=== PATIENT | male | born 1955 | race Caucasian/White ===

== ENCOUNTER 2016-10-12 05:35 | Inpatient (IN) | payer OTHER, BC ==
[~2016-10-12] VITALS: Ht 177.8 cm; Wt 78.7 kg
[~2016-10-12 05:35] MED LIST: HYDROCODONE PO
[2016-10-12] MEDS ORDERED: LACTATED RINGERS 1,000 ML IV SCH (06:13)
[2016-10-12 06:14] VITALS: BP 140/91
[2016-10-12 06:17] VITALS: BP 140/91
[2016-10-12] MEDS ORDERED: LIDOCAINE 1%, 2ML SQ PRN (06:30)
[2016-10-12] MEDS ORDERED: THROMBIN 5,000 UNIT VIAL TP ONE (06:41)
[2016-10-12] MEDS ORDERED: EPINEPHRINE 1 MG/ML, 1ML ONE (06:41)
[2016-10-12] MEDS ORDERED: BUPIVACAINE/PF 0.25% ONE (06:41)
[2016-10-12] MEDS ORDERED: LIDOCAINE 0.5%-EPI 1:200K, 50ML ONE (06:41)
[2016-10-12] MEDS ORDERED: VANCOMYCIN 1,000 MG ONE (06:41)
[2016-10-12] MEDS ORDERED: ROCURONIUM 10 MG/ML ONE (07:36)
[2016-10-12] MEDS ORDERED: CEFAZOLIN 1,000 MG ONE (07:36)
[2016-10-12] MEDS ORDERED: ONDANSETRON 2MG/ML, 2ML ONE (07:36)
[2016-10-12] MEDS ORDERED: EPHEDRINE 50 MG/ML, 1ML ONE (07:36)
[2016-10-12] MEDS ORDERED: PROPOFOL 10 MG/ML, 50ML ONE (07:36)
[2016-10-12] MEDS ORDERED: GLYCOPYRROLATE 0.2MG/1ML ONE (07:36)
[2016-10-12] MEDS ORDERED: PHENYLEPHRINE 10 MG/ML ONE (07:36)
[2016-10-12] MEDS ORDERED: PROPOFOL 10 MG/ML, 20ML ONE (07:36)
[2016-10-12] MEDS ORDERED: SUCCINYLCHOLINE 20 MG/ML, 10ML ONE (07:36)
[2016-10-12] MEDS ORDERED: DEXAMETHASONE 4 MG/ML, 1ML ONE (07:36)
[2016-10-12] MEDS ORDERED: REMIFENTANIL 2 MG ONE (07:40)
[2016-10-12] MEDS ORDERED: MIDAZOLAM 1 MG/ML, 2ML ONE (07:40)
[2016-10-12] MEDS ORDERED: FENTANYL PF 100 MCG/2ML ONE (07:40)
[2016-10-12] MEDS ORDERED: HYDROmorphone 1 MG/ML, 1ML IV PRN (10:30)
[2016-10-12] MEDS ORDERED: ACETAMINOPHEN 325 MG TABLET PO PRN (10:30)
[2016-10-12] MEDS ORDERED: LORazepam 2 MG/ML, 1ML IVPush PRN (10:30)
[2016-10-12] MEDS ORDERED: FENTANYL PF 100 MCG/2ML IV PRN (10:30)
[2016-10-12] MEDS ORDERED: METOCLOPRAMIDE 5 MG/ML, 2ML IV PRN (10:30)
[2016-10-12] MEDS ORDERED: EPHEDRINE 50 MG/ML, 1ML IVPush PRN (10:30)
[2016-10-12] MEDS ORDERED: OXYcodone 5 MG/5 ML ORAL.SOL UDC PO PRN (10:30)
[2016-10-12] MEDS ORDERED: MEPERIDINE/PF 25MG/0.5ML IVPush PRN (10:30)
[2016-10-12] MEDS ORDERED: MIDAZOLAM 1 MG/ML, 2ML IV PRN (10:30)
[2016-10-12] MEDS ORDERED: ONDANSETRON 2MG/ML, 2ML IVPush PRN (10:30)
[2016-10-12] MEDS ORDERED: MEPERIDINE/PF 25MG/0.5ML ONE (11:24)
[2016-10-12] MEDS ORDERED: OXYcodone 5 MG/5 ML ORAL.SOL UDC ONE (12:22)
[2016-10-12] MEDS ORDERED: BISACODYL 10 MG SUPP PR PRN (13:30)
[2016-10-12] MEDS ORDERED: morphine SULFATE 10 MG/ML, 1ML IV PRN (13:30)
[2016-10-12] MEDS ORDERED: PROMETHAZINE 25 MG/ML, 1ML IM PRN (13:30)
[2016-10-12] MEDS ORDERED: MAGNESIUM HYDROXIDE 8%, 30ML UDC PO PRN (13:30)
[2016-10-12] MEDS ORDERED: HYDROcodone/APAP 5/325 TABLET PO PRN (13:30)
[2016-10-12 14:27] VITALS: BP 118/68
[2016-10-12] MEDS: D5%-0.9% NACL+KCL 20MEQ 1,000 ML IV SCH (14:28)
[2016-10-12] MEDS: CEFAZOLIN PMX 1GM/50ML 50 ML IVPB SCH (17:14)
[2016-10-12] MEDS: METHOCARBAMOL 750 MG TABLET PO PRN (19:56)
[2016-10-12 20:23] VITALS: BP 123/69
[2016-10-12] MEDS: HYDROcodone/APAP 10/325 MG TABLET PO PRN (22:37)
[2016-10-13] MEDS: D5%-0.9% NACL+KCL 20MEQ 1,000 ML IV SCH ×2 (00:32→10:40)
[2016-10-13] MEDS: CEFAZOLIN PMX 1GM/50ML 50 ML IVPB SCH ×3 (00:32→16:49)
[2016-10-13 01:03] VITALS: BP 97/55
[2016-10-13] MEDS: HYDROcodone/APAP 10/325 MG TABLET PO PRN ×5 (02:40→20:19)
[2016-10-13] MEDS: METHOCARBAMOL 750 MG TABLET PO PRN ×2 (05:49→16:53)
[2016-10-13 06:00] LABS: HEMATOCRIT 35.1 % (39.2-51.8); HEMOGLOBIN 11.6 g/dL (13.7-18.0); WHITE BLOOD COUNT 9.3 x10^3/uL (3.4-10)
[2016-10-13 06:10] LABS: BLOOD UREA NITROGEN 14 mg/dL (7-18)
[2016-10-13 07:36] VITALS: BP 109/62
[2016-10-13] MEDS: ONDANSETRON 2MG/ML, 2ML IV PRN (09:18)
[2016-10-13] MEDS: SENNA/DOCUSATE TABLET PO SCH (09:19)
[2016-10-13 12:46] VITALS: BP 135/90
[2016-10-13 13:13] VITALS: BP 108/70
[2016-10-13] MEDS ORDERED: METOCLOPRAMIDE 5 MG/ML, 2ML IVPush PRN (18:00)
[2016-10-13 19:25] VITALS: BP_SYST 128; BP_DIAS 68; BP_DIAS 70; BP_DIAS 71
[2016-10-13] MEDS: MAGNESIUM HYDROXIDE 8%, 30ML UDC PO SCH (20:19)
[2016-10-14 00:03] VITALS: BP 119/69
[2016-10-14] MEDS: HYDROcodone/APAP 10/325 MG TABLET PO PRN ×2 (00:45→05:58)
[2016-10-14] MEDS: CEFAZOLIN PMX 1GM/50ML 50 ML IVPB SCH ×2 (00:45→09:09)
[2016-10-14 05:12] LABS: HEMATOCRIT 34.1 % (39.2-51.8); HEMOGLOBIN 11.3 g/dL (13.7-18.0)
[2016-10-14 05:22] LABS: BLOOD UREA NITROGEN 9 mg/dL (7-18)
[2016-10-14 07:27] VITALS: BP 122/71
[2016-10-14] MEDS ORDERED: MAGNESIUM CITRATE 300ML ORAL SOL ONE (09:02)
[2016-10-14] MEDS: ONDANSETRON 2MG/ML, 2ML IV PRN (09:16)
[2016-10-14] MEDS ORDERED: DIAZEPAM 2 MG TABLET PO PRN (09:30)
[2016-10-14] MEDS ORDERED: SODIUM CHLORIDE 0.9% 500 ML IV SCH (09:30)
[2016-10-14] MEDS ORDERED: MAGNESIUM CITRATE 300ML ORAL SOL PO ONE (09:30)
[2016-10-14 14:25] VITALS: BP 137/75
[2016-10-14] MEDS: OXYcodone IR 5MG TABLET PO PRN ×2 (16:01→20:50)
[2016-10-14 19:00] VITALS: BP 120/71
[2016-10-14] MEDS: MAGNESIUM HYDROXIDE 8%, 30ML UDC PO SCH (20:51)
[2016-10-14] MEDS: SENNA/DOCUSATE TABLET PO SCH (20:51)
[2016-10-15 00:40] VITALS: BP 133/67
[2016-10-15] MEDS: OXYcodone IR 5MG TABLET PO PRN ×3 (02:20→09:40)
[2016-10-15 07:54] VITALS: BP 133/74
[2016-10-15] MEDS ORDERED: OXYcodone IR 5MG TABLET PO PRN (09:30)
[2016-10-15] MEDS ORDERED: CEPHALEXIN 500 MG CAPSULE PO SCH (09:30)
[2016-10-15] MEDS ORDERED: DEXAMETHASONE 4 MG TABLET PO ONE (09:30)
[2016-10-15] MEDS ORDERED: OXYC-229 PO (09:58)
[2016-10-15] MEDS: MAGNESIUM HYDROXIDE 8%, 30ML UDC PO SCH (09:58)
[2016-10-15] MEDS: SENNA/DOCUSATE TABLET PO SCH (09:58)
[2016-10-15] MEDS ORDERED: CEPH-368 PO (09:58)
[2016-10-15 11:15] VITALS: BP 141/63
== END 2016-10-15 12:00 | disposition home or self-care (01) | DRG 460 ==
LOC: ORIP 05:35 → 4NOR 12:42 → DCLOUNGE 10-15 11:35
PROVIDERS: ADMIT Orthopaedic Surgery Orthopaedic Surgery of the Spine; ATTEND Orthopaedic Surgery Orthopaedic Surgery of the Spine
PROC: 01NB0ZZ Release Lumbar Nerve, Open Approach (ICD-10-PCS; 2016-10-12)
PROC: 0QB00ZZ Excision of Lumbar Vertebra, Open Approach (ICD-10-PCS; 2016-10-12)
PROC: 00BY0ZZ Excision of Lumbar Spinal Cord, Open Approach (ICD-10-PCS; 2016-10-12)
PROC: 0SG0071 Fusion of Lumbar Vertebral Joint with Autologous Tissue Substitute, Posterior Approach, Posterior Column, Open Approach (ICD-10-PCS; principal; 2016-10-12 07:30)
DX: M48.06 Spinal stenosis, lumbar region (principal); M43.16 Spondylolisthesis, lumbar region; M54.16 Radiculopathy, lumbar region; M71.38 Other bursal cyst, other site; G89.18 Other acute postprocedural pain; Z88.1 Allergy status to other antibiotic agents; Z87.891 Personal history of nicotine dependence
CPT/HCPCS: 36415; 72100; 80048; 85025; C1713; J0171; J0690; J1100; J2175; J2250; J2405; J2704; J3010; J3370; J3490; C1762; J0330; J2270; J2370; J2765; J3480; J7040; J7120